=== PATIENT | male | born 1955 | race Caucasian/White ===

== ENCOUNTER 2018-02-04 07:17 | Inpatient (IN) | payer OTHER ==
[2018-01-30 11:56] LABS: BILIRUBIN,URINE NEGATIVE (NEGATIVE); BLOOD, URINE NEGATIVE (NEGATIVE); CLARITY/URINE CLEAR (CLEAR); COLOR,URINE YELLOW (YELLOW); GLUCOSE,URINE NEGATIVE (NEGATIVE); KETONES,URINE NEGATIVE (NEGATIVE); LEUKOCYTE ESTERASE ,URINE NEGATIVE (NEGATIVE); NITRITE, URINE NEGATIVE (NEGATIVE); PH,URINE 5.5 (5.0-8.0); PROTEIN URINE NEGATIVE (NEGATIVE); UROBILINOGEN,URINE 0.2 (0.2-1.0)
[2018-01-30 12:00] LABS: BASOPHILS % (AUTO) 0.5 % (0.0-2.0); EOSINOPHILS # (AUTO) 0.1 K/uL (0.0-0.4); HEMATOCRIT 46.7 % (36-54); HEMOGLOBIN 15.4 g/dL (14.0-18.0); LYMPHOCYTES # (AUTO) 1.5 K/uL (1.0-5.5); LYMPHOCYTES % (AUTO) 21.8 % (20.5-51.5); MEAN CORPUSCULAR HEMOGLOBIN 29 pg (27-31); MEAN CORPUSCULAR HGB CONC 33 % (32-36); MEAN CORPUSCULAR VOLUME 89 fL (79.0-98.0); MONOCYTES # (AUTO) 0.4 K/uL (0.0-1.0); MONOCYTES % (AUTO) 6.3 % (1.7-9.3); NEUTROPHILS # (AUTO) 4.8 K/uL (1.8-7.7); NEUTROPHILS % (AUTO) 70.4 % (40.0-70.0); PLATELET COUNT (AUTO) 230 K/uL (130-430); RED BLOOD CELL COUNT(AUTO) 5.27 MIL/uL (4.2-6.2); RED CELL DISTRIBUTION WIDTH 12.4 % (9.0-15.0); WHITE BLOOD COUNT (AUTO) 6.8 K/uL (4.8-10.8)
[2018-01-30 12:13] LABS: PROTHROMBIN TIME 10.4 SECS (9.5-12.5)
[2018-01-30 12:14] LABS: ALBUMIN 3.9 g/dL (3.4-4.8); CALCIUM 9.4 mg/dL (8.4-11.0); CREATININE 0.84 mg/dL (0.55-1.30); POTASSIUM 3.9 mmol/L (3.5-5.1); TOTAL BILIRUBIN 0.5 mg/dL (0.0-1.0)
[~2018-02-04] VITALS: Ht 185.4 cm; Wt 128.4 kg
[~2018-02-04 07:17] MED LIST: ATEN50TA PO; GLU850 PO; LIP10 PO; VALS160T2 PO
[2018-02-04] MEDS ORDERED: GABAPENTIN 300 MG CAPSULE ONE (07:25)
[2018-02-04] MEDS ORDERED: CELECOXIB 200 MG CAPSULE ONE (07:25)
[2018-02-04] MEDS ORDERED: ACETAMINOPHEN 500 MG TABLET ONE (07:26)
[2018-02-04] MEDS ORDERED: oxyCODONE HCL 10 MG TAB.ER.12H PO ONE ×2 (07:27→10:15)
[2018-02-04] MEDS ORDERED: TRANEXAMIC ACID 650 MG TABLET ONE (07:27)
[2018-02-04] MEDS ORDERED: LIP10 PO (08:35)
[2018-02-04] MEDS ORDERED: VALS160T2 PO (08:35)
[2018-02-04] MEDS ORDERED: ATEN50TA PO (08:35)
[2018-02-04] MEDS ORDERED: GLU850 PO (08:35)
[2018-02-04] MEDS ORDERED: ASPI-1063 PO (08:35)
[2018-02-04] MEDS ORDERED: CEFAZOLIN 1 GM IVPB PREMIX 50 ML IV SCH (09:30)
[2018-02-04] MEDS ORDERED: oxyCODONE HCL 5 MG TABLET PO PRN ×2 (09:30)
[2018-02-04] MEDS ORDERED: PROMETHAZINE HCL 25 MG/ML AMP IVP PRN (09:30)
[2018-02-04] MEDS ORDERED: SENNOSIDES 8.6 MG TABLET PO PRN (09:30)
[2018-02-04] MEDS ORDERED: ROPIVACAINE 0.2% 550 ML INJ SCH (09:30)
[2018-02-04] MEDS ORDERED: KETOROLAC TROMETHAMINE 30 MG VIAL IVP PRN (09:30)
[2018-02-04] MEDS ORDERED: DIPHENHYDRAMINE HCL 50 MG CAPSULE PO PRN (09:30)
[2018-02-04] MEDS ORDERED: MORPHINE 4 MG/ML INJ. SYRINGE IVP PRN ×5 (09:30→18:15)
[2018-02-04] MEDS ORDERED: ONDANSETRON HCL 4 MG/2 ML VIAL IVP PRN ×2 (09:30→16:15)
[2018-02-04] MEDS ORDERED: ONDANSETRON HCL 4 MG/2 ML VIAL IVP ONE (09:40)
[2018-02-04] MEDS ORDERED: TRANEXAMIC ACID 1,000 MG/10 ML VIAL IV ONE (09:40)
[2018-02-04] MEDS ORDERED: ROCURONIUM BROMIDE 10 MG/ML (ZEMURON) IV ONE (09:40)
[2018-02-04] MEDS ORDERED: EPINEPHrine 1 MG/ML AMP IV ONE (09:40)
[2018-02-04] MEDS ORDERED: PROPOFOL 200MG/ 20ML VIAL (DIPRIVAN) IV ONE (09:40)
[2018-02-04] MEDS ORDERED: NS 50 ML BAG IV ONE (09:40)
[2018-02-04] MEDS ORDERED: MIDAZOLAM HCL 5 MG/5 ML VIAL IVP ONE (09:40)
[2018-02-04] MEDS ORDERED: SEVOFLURANE 15 MIN GAS INH ONE (09:40)
[2018-02-04] MEDS ORDERED: fentaNYL CITRATE/PF 100 MCG/2 ML AMP IVP ONE (09:40)
[2018-02-04] MEDS ORDERED: NORMAL SALINE 10 ML VIAL IVP ONE (09:40)
[2018-02-04] MEDS ORDERED: LR 1,000 ML IV.SOLN IV ONE (09:40)
[2018-02-04] MEDS ORDERED: fentaNYL CITRATE 250 MCG/5 ML AMP IV ONE (09:40)
[2018-02-04] MEDS ORDERED: VANCOMYCIN HCL 1000 MG/VIAL IV ONE (09:40)
[2018-02-04] MEDS ORDERED: KETOROLAC TROMETHAMINE 30 MG VIAL IVP ONE (09:40)
[2018-02-04] MEDS ORDERED: MORPHINE SULFATE 10MG/10ML PF AMP EP ONE (09:40)
[2018-02-04] MEDS ORDERED: POLYMYXIN 500,000/BACIT.10,000 UNITS in NS IRR 1 L IR ONE (10:12)
[2018-02-04] MEDS ORDERED: TRANEXAMIC ACID 650 MG TABLET PO ONE (10:15)
[2018-02-04] MEDS ORDERED: ACETAMINOPHEN 500 MG TABLET PO ONE (10:15)
[2018-02-04] MEDS ORDERED: NACL 0.9% 1,000 ML IV ONE (10:15)
[2018-02-04] MEDS ORDERED: CEFAZOLIN 2 GM IVPB PREMIX 50 ML IV ONE (10:15)
[2018-02-04] MEDS ORDERED: CELECOXIB 200 MG CAPSULE PO ONE (10:15)
[2018-02-04] MEDS ORDERED: GABAPENTIN 300 MG CAPSULE PO ONE (10:15)
[2018-02-04] MEDS ORDERED: METOCLOPRAMIDE HCL 10 MG/2 ML VIAL IVP PRN (11:00)
[2018-02-04 14:00] VITALS: BP_SYST 114
[2018-02-04 15:00] VITALS: BP_SYST 114
[2018-02-04] MEDS: ACETAMINOPHEN 500 MG TABLET PO SCH ×2 (15:10→21:52)
[2018-02-04] MEDS: LR 1,000 ML IV SCH ×2 (15:10→21:54)
[2018-02-04] MEDS: CEFAZOLIN 1 GM IVPB PREMIX 50 ML IV SCH ×2 (15:10→21:53)
[2018-02-04] MEDS ORDERED: HYDROmorphone 1 MG INJ. 1 MG/ML AMPUL IVP PRN (16:15)
[2018-02-04] MEDS ORDERED: NALBUPHINE HCL 10 MG/ML AMP IVP PRN (16:15)
[2018-02-04] MEDS ORDERED: DIPHENHYDRAMINE INJ 50 MG/ML VIAL IVP PRN (16:15)
[2018-02-04] MEDS ORDERED: MORPHINE SULFATE 10 MG/ML VIAL IVP PRN (18:15)
[2018-02-04 19:59] VITALS: BP_SYST 123
[2018-02-04] MEDS: CELECOXIB 200 MG CAPSULE PO SCH (21:50)
[2018-02-04] MEDS: GABAPENTIN 300 MG CAPSULE PO SCH (21:52)
[2018-02-05 00:19] VITALS: BP_SYST 125
[2018-02-05] MEDS: LR 1,000 ML IV SCH ×3 (05:30→23:39)
[2018-02-05] MEDS: CEFAZOLIN 1 GM IVPB PREMIX 50 ML IV SCH (06:08)
[2018-02-05 06:58] LABS: CALCIUM 8.8 mg/dL (8.4-11.0); CREATININE 0.77 mg/dL (0.55-1.30); POTASSIUM 4.1 mmol/L (3.5-5.1)
[2018-02-05 07:08] LABS: BASOPHILS % (AUTO) 0.1 % (0.0-2.0); EOSINOPHILS # (AUTO) 0.1 K/uL (0.0-0.4); EOSINOPHILS % (AUTO) 1.3 % (0.0-4.0); HEMATOCRIT 39.2 % (36-54); HEMOGLOBIN 13.1 g/dL (14.0-18.0); LYMPHOCYTES # (AUTO) 1.4 K/uL (1.0-5.5); LYMPHOCYTES % (AUTO) 14.2 % (20.5-51.5); MEAN CORPUSCULAR HEMOGLOBIN 30 pg (27-31); MEAN CORPUSCULAR HGB CONC 34 % (32-36); MEAN CORPUSCULAR VOLUME 90 fL (79.0-98.0); MONOCYTES % (AUTO) 10.2 % (1.7-9.3); NEUTROPHILS # (AUTO) 7.4 K/uL (1.8-7.7); NEUTROPHILS % (AUTO) 74.2 % (40.0-70.0); PLATELET COUNT (AUTO) 193 K/uL (130-430); RED BLOOD CELL COUNT(AUTO) 4.35 MIL/uL (4.2-6.2); RED CELL DISTRIBUTION WIDTH 12.1 % (9.0-15.0); WHITE BLOOD COUNT (AUTO) 9.9 K/uL (4.8-10.8)
[2018-02-05] MEDS: ACETAMINOPHEN 500 MG TABLET PO SCH ×3 (08:10→20:45)
[2018-02-05] MEDS: CELECOXIB 200 MG CAPSULE PO SCH ×2 (08:10→20:44)
[2018-02-05] MEDS: ATENOLOL 50 MG TABLET (TENORMIN) PO SCH (08:11)
[2018-02-05] MEDS: ATORVASTATIN 10 MG TABLET PO SCH (08:11)
[2018-02-05] MEDS: VALSARTAN 160 MG TABLET (DIOVAN) PO SCH (08:11)
[2018-02-05 08:12] VITALS: BP_SYST 129
[2018-02-05] MEDS: RIVAROXABAN 10 MG TABLET PO SCH (09:26)
[2018-02-05] MEDS: INSULIN REGULAR, HUMAN 100 UNITS/ML, 10 ML VIAL (novoLIN R) SUBCUT PRN ×2 (11:49→16:43)
[2018-02-05 13:00] VITALS: BP_SYST 126
[2018-02-05] MEDS ORDERED: IOHEXOL 350 mgI/mL, 150 ML INFUS..BTL IV ONE (15:04)
[2018-02-05] MEDS: ROPIVACAINE 0.2% 550 ML INJ SCH (16:06)
[2018-02-05 16:18] VITALS: BP_SYST 126
[2018-02-05 20:00] VITALS: BP_SYST 117
[2018-02-05] MEDS: GABAPENTIN 300 MG CAPSULE PO SCH (20:43)
[2018-02-06 00:53] VITALS: BP_SYST 132
[2018-02-06 06:19] LABS: BASOPHILS % (AUTO) 0.2 % (0.0-2.0); EOSINOPHILS # (AUTO) 0.1 K/uL (0.0-0.4); EOSINOPHILS % (AUTO) 1.1 % (0.0-4.0); HEMATOCRIT 37.6 % (36-54); HEMOGLOBIN 12.8 g/dL (14.0-18.0); LYMPHOCYTES # (AUTO) 1.3 K/uL (1.0-5.5); LYMPHOCYTES % (AUTO) 12.2 % (20.5-51.5); MEAN CORPUSCULAR HEMOGLOBIN 31 pg (27-31); MEAN CORPUSCULAR HGB CONC 34 % (32-36); MEAN CORPUSCULAR VOLUME 90 fL (79.0-98.0); MONOCYTES % (AUTO) 9.6 % (1.7-9.3); NEUTROPHILS # (AUTO) 8.3 K/uL (1.8-7.7); NEUTROPHILS % (AUTO) 76.9 % (40.0-70.0); PLATELET COUNT (AUTO) 182 K/uL (130-430); RED BLOOD CELL COUNT(AUTO) 4.19 MIL/uL (4.2-6.2); RED CELL DISTRIBUTION WIDTH 12.2 % (9.0-15.0); WHITE BLOOD COUNT (AUTO) 10.7 K/uL (4.8-10.8)
[2018-02-06 06:51] LABS: CREATININE 0.8 mg/dL (0.55-1.30); POTASSIUM 3.8 mmol/L (3.5-5.1)
[2018-02-06] MEDS: CELECOXIB 200 MG CAPSULE PO SCH (09:04)
[2018-02-06] MEDS: VALSARTAN 160 MG TABLET (DIOVAN) PO SCH (09:04)
[2018-02-06] MEDS: ATORVASTATIN 10 MG TABLET PO SCH (09:05)
[2018-02-06] MEDS: ACETAMINOPHEN 500 MG TABLET PO SCH ×2 (09:06→15:07)
[2018-02-06] MEDS: RIVAROXABAN 10 MG TABLET PO SCH (09:06)
[2018-02-06] MEDS: ATENOLOL 50 MG TABLET (TENORMIN) PO SCH (09:06)
[2018-02-06] MEDS: LR 1,000 ML IV SCH (10:11)
[2018-02-06 12:12] VITALS: BP_SYST 95
[2018-02-06] MEDS: ROPIVACAINE 0.2% 550 ML INJ SCH (14:43)
[2018-02-06 16:32] VITALS: BP_SYST 97
[2018-02-06 16:42] VITALS: BP_SYST 97
== END 2018-02-06 17:25 | disposition home health service (06) | DRG 470 ==
LOC: SMU 07:17 → EDSEX 09:45 → SMU 14:01 → STU 14:22
PROVIDERS: ADMIT Orthopaedic Surgery; ATTEND Orthopaedic Surgery
PROC: 0SRC0J9 Replacement of Right Knee Joint with Synthetic Substitute, Cemented, Open Approach (ICD-10-PCS; principal; 2018-02-04 09:45)
DX: M17.0 Bilateral primary osteoarthritis of knee (principal); E66.01 Morbid (severe) obesity due to excess calories; I48.0 Paroxysmal atrial fibrillation; I48.91 Unspecified atrial fibrillation; R55 Syncope and collapse; E11.9 Type 2 diabetes mellitus without complications; E78.5 Hyperlipidemia, unspecified; I10 Essential (primary) hypertension; Z68.37 Body mass index [BMI] 37.0-37.9, adult
CPT/HCPCS: 36415; 71046-TC; 71275; 80048; 80053; 81003; 82962; 85025; 85610-TC; 85730-TC; 87081; 88305; 88311; 93005; 93306; 94010; 97039; 97110-GP; 97116-GP; 97530-GP; J0171; J0690; J1815; J1885; J2250; J2274; J2405; J2704; J2795; J3010; J3370; J3490; J7030; J7120; Q9967

== ENCOUNTER 2019-01-13 06:25 | Inpatient (IN) | payer OTHER ==
[2019-01-08 12:06] LABS: BILIRUBIN,URINE NEGATIVE (NEGATIVE); BLOOD, URINE NEGATIVE (NEGATIVE); CLARITY/URINE CLEAR (CLEAR); COLOR,URINE YELLOW (YELLOW); GLUCOSE,URINE NEGATIVE (NEGATIVE); KETONES,URINE NEGATIVE (NEGATIVE); LEUKOCYTE ESTERASE ,URINE NEGATIVE (NEGATIVE); NITRITE, URINE NEGATIVE (NEGATIVE); PH,URINE 5.5 (5.0-8.0); PROTEIN URINE NEGATIVE (NEGATIVE); UROBILINOGEN,URINE 0.2 (0.2-1.0)
[2019-01-08 12:13] LABS: ALBUMIN 3.8 g/dL (3.4-4.8); CALCIUM 8.8 mg/dL (8.4-11.0); CREATININE 0.89 mg/dL (0.55-1.30); POTASSIUM 4.2 mmol/L (3.5-5.1); PROTHROMBIN TIME 10.6 SECS (9.5-12.5); TOTAL BILIRUBIN 0.6 mg/dL (0.0-1.0)
[2019-01-08 12:25] LABS: WHITE BLOOD COUNT (AUTO) 5.5 K/uL (4.8-10.8)
[2019-01-08 12:26] LABS: HEMATOCRIT 45.6 % (36-54); HEMOGLOBIN 15.2 g/dL (14.0-18.0); MEAN CORPUSCULAR HEMOGLOBIN 30 pg (27-31); MEAN CORPUSCULAR HGB CONC 33 % (32-36); MEAN CORPUSCULAR VOLUME 90 fL (79.0-98.0); PLATELET COUNT (AUTO) 193 K/uL (130-430); RED BLOOD CELL COUNT(AUTO) 5.07 MIL/uL (4.2-6.2); RED CELL DISTRIBUTION WIDTH 13.4 % (9.0-15.0)
[2019-01-08 12:27] LABS: BASOPHILS % (AUTO) 0.4 % (0.0-2.0); EOSINOPHILS % (AUTO) 0.7 % (0.0-4.0); MONOCYTES # (AUTO) 0.3 K/uL (0.0-1.0); MONOCYTES % (AUTO) 6.1 % (1.7-9.3); NEUTROPHILS # (AUTO) 4.2 K/uL (1.8-7.7); NEUTROPHILS % (AUTO) 76.8 % (40.0-70.0)
[~2019-01-13] VITALS: Ht 185.4 cm; Wt 124.7 kg
[~2019-01-13 06:25] MED LIST changes: +ASPI-1153 PO
[2019-01-13] MEDS ORDERED: oxyCODONE HCL 10 MG TAB.ER.12H PO ONE ×2 (06:57→07:00)
[2019-01-13] MEDS ORDERED: GABAPENTIN 300 MG CAPSULE ONE (06:57)
[2019-01-13] MEDS ORDERED: CELECOXIB 200 MG CAPSULE ONE (06:57)
[2019-01-13] MEDS ORDERED: ACETAMINOPHEN 500 MG TABLET ONE (06:57)
[2019-01-13] MEDS ORDERED: TRANEXAMIC ACID 650 MG TABLET ONE (06:58)
[2019-01-13] MEDS ORDERED: TRANEXAMIC ACID 650 MG TABLET PO ONE (07:00)
[2019-01-13] MEDS ORDERED: GABAPENTIN 300 MG CAPSULE PO ONE (07:00)
[2019-01-13] MEDS ORDERED: NACL 0.9% 1,000 ML IV ONE (07:00)
[2019-01-13] MEDS ORDERED: CELECOXIB 200 MG CAPSULE PO ONE (07:00)
[2019-01-13] MEDS ORDERED: CEFAZOLIN 2 GM IVPB PREMIX 50 ML IV ONE (07:00)
[2019-01-13] MEDS ORDERED: ACETAMINOPHEN 500 MG TABLET PO ONE (07:00)
[2019-01-13] MEDS ORDERED: POLYMYXIN 500,000/BACIT.10,000 UNITS in NS IRR 1 L IR ONE ×2 (07:02→07:32)
[2019-01-13] MEDS ORDERED: fentaNYL CITRATE/PF 100 MCG/2 ML AMP IVP ONE (08:15)
[2019-01-13] MEDS ORDERED: ONDANSETRON HCL 4 MG/2 ML VIAL IVP ONE (08:15)
[2019-01-13] MEDS ORDERED: BUPIVACAINE /DEX PF 0.75% SPINAL 2 ML AMP INJ ONE (08:15)
[2019-01-13] MEDS ORDERED: MORPHINE SULFATE 10MG/10ML PF AMP EP ONE (08:15)
[2019-01-13] MEDS ORDERED: SEVOFLURANE 15 MIN GAS INH ONE (08:15)
[2019-01-13] MEDS ORDERED: ROCURONIUM BROMIDE 10 MG/ML (ZEMURON) IV ONE (08:15)
[2019-01-13] MEDS ORDERED: MIDAZOLAM HCL 5 MG/5 ML VIAL IVP ONE (08:15)
[2019-01-13] MEDS ORDERED: NS 50 ML BAG IV ONE (08:15)
[2019-01-13] MEDS ORDERED: EPINEPHrine 1 MG/ML AMP IV ONE (08:15)
[2019-01-13] MEDS ORDERED: PROPOFOL 200MG/ 20ML VIAL (DIPRIVAN) IV ONE (08:15)
[2019-01-13] MEDS ORDERED: TRANEXAMIC ACID 1,000 MG/10 ML VIAL IV ONE (08:15)
[2019-01-13] MEDS ORDERED: ROPIVACAINE HCL/PF 5 MG/ML 0.5% 30 ML VIAL INJ ONE (08:15)
[2019-01-13] MEDS ORDERED: VANCOMYCIN HCL 1000 MG/VIAL IV ONE (08:15)
[2019-01-13] MEDS ORDERED: KETOROLAC TROMETHAMINE 30 MG VIAL IVP ONE (08:15)
[2019-01-13] MEDS ORDERED: ROPIVACAINE HCL/PF 0.2% (NAROPIN) 200 ML PLAST..BAG EP ONE (08:15)
[2019-01-13] MEDS ORDERED: LR 1,000 ML IV.SOLN IV ONE (08:15)
[2019-01-13] MEDS ORDERED: LR 1,000 ML IV SCH (09:48)
[2019-01-13] MEDS ORDERED: ROPIVACAINE 0.2% 550 ML INJ SCH ×2 (09:48→10:27)
[2019-01-13] MEDS ORDERED: NALBUPHINE HCL 10 MG/ML AMP IVP PRN (10:00)
[2019-01-13] MEDS ORDERED: HYDROmorphone 2 MG/ML VIAL IVP PRN ×3 (10:00)
[2019-01-13] MEDS ORDERED: DIPHENHYDRAMINE INJ 50 MG/ML VIAL IVP PRN (10:00)
[2019-01-13] MEDS ORDERED: METOCLOPRAMIDE HCL 10 MG/2 ML VIAL IVP PRN (10:00)
[2019-01-13] MEDS ORDERED: ONDANSETRON HCL 4 MG/2 ML VIAL IVP PRN (10:00)
[2019-01-13] MEDS ORDERED: D5LR 1,000 ML IV SCH (10:27)
[2019-01-13] MEDS ORDERED: MORPHINE 4 MG/ML INJ. SYRINGE IVP PRN (10:30)
[2019-01-13] MEDS ORDERED: KETOROLAC TROMETHAMINE 30 MG VIAL IVP PRN ×2 (10:30)
[2019-01-13] MEDS: NACL 0.9% 1,000 ML IV SCH ×2 (11:00→21:49)
[2019-01-13 12:06] VITALS: BP_SYST 105
[2019-01-13] MEDS ORDERED: oxyCODONE HCL 5 MG TABLET PO PRN ×2 (13:00)
[2019-01-13] MEDS: CEFAZOLIN 1 GM IVPB PREMIX 50 ML IV SCH ×2 (14:58→21:51)
[2019-01-13] MEDS: ACETAMINOPHEN 500 MG TABLET PO SCH ×2 (15:00→21:50)
[2019-01-13 16:50] VITALS: BP_SYST 125
[2019-01-13] MEDS: RIVAROXABAN 10 MG TABLET PO SCH (17:30)
[2019-01-13 20:00] VITALS: BP_SYST 112
[2019-01-13] MEDS: CELECOXIB 200 MG CAPSULE PO SCH (21:50)
[2019-01-13] MEDS: GABAPENTIN 300 MG CAPSULE PO SCH (21:51)
[2019-01-14 02:35] VITALS: BP_SYST 115
[2019-01-14] MEDS: CEFAZOLIN 1 GM IVPB PREMIX 50 ML IV SCH (06:08)
[2019-01-14 07:06] LABS: CALCIUM 7.9 mg/dL (8.4-11.0); CREATININE 0.83 mg/dL (0.55-1.30); POTASSIUM 4.2 mmol/L (3.5-5.1)
[2019-01-14 07:12] LABS: HEMATOCRIT 36.9 % (36-54); HEMOGLOBIN 12.5 g/dL (14.0-18.0); MEAN CORPUSCULAR HEMOGLOBIN 31 pg (27-31); MEAN CORPUSCULAR VOLUME 90 fL (79.0-98.0); RED BLOOD CELL COUNT(AUTO) 4.09 MIL/uL (4.2-6.2); WHITE BLOOD COUNT (AUTO) 7.7 K/uL (4.8-10.8)
[2019-01-14 07:13] LABS: BASOPHILS % (AUTO) 0.3 % (0.0-2.0); EOSINOPHILS # (AUTO) 0.1 K/uL (0.0-0.4); EOSINOPHILS % (AUTO) 0.8 % (0.0-4.0); LYMPHOCYTES # (AUTO) 0.6 K/uL (1.0-5.5); LYMPHOCYTES % (AUTO) 8.3 % (20.5-51.5); MEAN CORPUSCULAR HGB CONC 34 % (32-36); MONOCYTES # (AUTO) 0.8 K/uL (0.0-1.0); MONOCYTES % (AUTO) 10.4 % (1.7-9.3); NEUTROPHILS # (AUTO) 6.2 K/uL (1.8-7.7); NEUTROPHILS % (AUTO) 80.2 % (40.0-70.0); PLATELET COUNT (AUTO) 155 K/uL (130-430); RED CELL DISTRIBUTION WIDTH 13.4 % (9.0-15.0)
[2019-01-14 08:22] VITALS: BP_SYST 123
[2019-01-14] MEDS: CELECOXIB 200 MG CAPSULE PO SCH ×2 (08:29→20:21)
[2019-01-14] MEDS: ATENOLOL 50 MG TABLET (TENORMIN) PO SCH (08:29)
[2019-01-14] MEDS: ACETAMINOPHEN 500 MG TABLET PO SCH ×3 (08:30→20:21)
[2019-01-14] MEDS: ATORVASTATIN 10 MG TABLET PO SCH (08:30)
[2019-01-14] MEDS: VALSARTAN 160 MG TABLET (DIOVAN) PO SCH (08:30)
[2019-01-14] MEDS: NACL 0.9% 1,000 ML IV SCH ×3 (08:35→20:20)
[2019-01-14 12:02] VITALS: BP_SYST 118
[2019-01-14 16:09] VITALS: BP_SYST 136
[2019-01-14] MEDS: RIVAROXABAN 10 MG TABLET PO SCH (16:28)
[2019-01-14 20:00] VITALS: BP_SYST 137
[2019-01-14] MEDS: GABAPENTIN 300 MG CAPSULE PO SCH (20:21)
[2019-01-15 00:30] VITALS: BP_SYST 125
[2019-01-15 07:07] LABS: HEMATOCRIT 35.6 % (36-54); MEAN CORPUSCULAR HEMOGLOBIN 31 pg (27-31); MEAN CORPUSCULAR HGB CONC 34 % (32-36); MEAN CORPUSCULAR VOLUME 91 fL (79.0-98.0); PLATELET COUNT (AUTO) 151 K/uL (130-430); RED BLOOD CELL COUNT(AUTO) 3.92 MIL/uL (4.2-6.2); RED CELL DISTRIBUTION WIDTH 13.5 % (9.0-15.0); WHITE BLOOD COUNT (AUTO) 7.1 K/uL (4.8-10.8)
[2019-01-15 07:33] LABS: CALCIUM 8.1 mg/dL (8.4-11.0); CREATININE 0.86 mg/dL (0.55-1.30); POTASSIUM 3.7 mmol/L (3.5-5.1)
[2019-01-15 07:38] LABS: NEUTROPHILS % (AUTO) 77.6 % (40.0-70.0)
[2019-01-15 07:39] LABS: BASOPHILS % (AUTO) 0.2 % (0.0-2.0); EOSINOPHILS # (AUTO) 0.1 K/uL (0.0-0.4); EOSINOPHILS % (AUTO) 1.4 % (0.0-4.0); LYMPHOCYTES # (AUTO) 0.7 K/uL (1.0-5.5); LYMPHOCYTES % (AUTO) 9.9 % (20.5-51.5); MONOCYTES # (AUTO) 0.8 K/uL (0.0-1.0); MONOCYTES % (AUTO) 10.9 % (1.7-9.3); NEUTROPHILS # (AUTO) 5.5 K/uL (1.8-7.7)
[2019-01-15 08:28] VITALS: BP_SYST 148
[2019-01-15] MEDS: VALSARTAN 160 MG TABLET (DIOVAN) PO SCH (08:29)
[2019-01-15] MEDS: ACETAMINOPHEN 500 MG TABLET PO SCH (08:33)
[2019-01-15] MEDS: ATORVASTATIN 10 MG TABLET PO SCH (08:33)
[2019-01-15] MEDS: ATENOLOL 50 MG TABLET (TENORMIN) PO SCH (08:34)
[2019-01-15] MEDS: CELECOXIB 200 MG CAPSULE PO SCH (08:34)
[2019-01-15 12:58] VITALS: BP_SYST 132
[2019-01-15] MEDS ORDERED: HYDR-4273 PO (13:25)
[2019-01-15] MEDS ORDERED: RIVA10TA PO (13:25)
[2019-01-15 14:08] VITALS: BP_SYST 132
[2019-01-16] MEDS ORDERED: ONDANSETRON HCL 4 MG/2 ML VIAL IVP PRN (10:30)
[2019-01-16] MEDS ORDERED: PROMETHAZINE HCL 25 MG/ML AMP IVP PRN (10:30)
[2019-01-16] MEDS ORDERED: DIPHENHYDRAMINE HCL 50 MG CAPSULE PO PRN (10:30)
== END 2019-01-15 14:30 | disposition home or self-care (01) | DRG 470 ==
LOC: SMU 06:25 → STU 13:31 → SMU 01-14 21:36
PROVIDERS: ADMIT Orthopaedic Surgery; ATTEND Orthopaedic Surgery
PROC: 0SRD0J9 Replacement of Left Knee Joint with Synthetic Substitute, Cemented, Open Approach (ICD-10-PCS; principal; 2019-01-13 08:30)
DX: M17.12 Unilateral primary osteoarthritis, left knee (principal); I10 Essential (primary) hypertension; Z96.651 Presence of right artificial knee joint; E66.01 Morbid (severe) obesity due to excess calories; I48.91 Unspecified atrial fibrillation; E11.40 Type 2 diabetes mellitus with diabetic neuropathy, unspecified; Z68.36 Body mass index [BMI] 36.0-36.9, adult
CPT/HCPCS: 36415; 71046-TC; 80048; 80053; 81003; 83036; 85025; 85610-TC; 85730-TC; 87081; 88305; 88311; 97039; 97110-GP; 97116-GP; 97530-GP; C1713; C1776; G0378; J0171; J0690; J1885; J2250; J2274; J2405; J2704; J2795; J3010; J3370; J3490; J7030; J7120